=== PATIENT | male | born 1945 | race Asian ===

== ENCOUNTER 2018-09-17 11:26 | Inpatient (IN) | payer MEDICARE, OTHER ==
[2018-09-17] VITALS (26 sets, daily range): BP systolic 97–141; BP diastolic 57–90; PULSE 84–96; RESP 11–23; Ht 185.4 cm; Wt 103.8 kg
[~2018-09-17] VITALS: Ht 185.4 cm; Wt 103.8 kg
[~2018-09-17 11:26] MED LIST: ACETAMINOPHEN 500 MG TAB PO ONE; CEFAZOLIN 1 GM/50 ML (PMX) 50 ML IVPB ONE; DEXAMETHASONE 4 MG/ML 1 ML INJ IV ONE; KNEE PAIN COCKTAIL VANCO INJ SCH; LACTATED RINGER'S 1,000 ML IV* SCH; LANSOPRAZOLE 30 MG CAP PO ONE; ONDANSETRON 4 MG INJ IV ONE; TRANEXAMIC ACID 1GM/100ML(PMX) 100 ML INTRA-OP X1 IVPB ONE; TRANEXAMIC ACID 1GM/100ML(PMX) 100 ML PRE-OP X1 IVPB ONE; oxyCODONE (CR) 10 MG TAB [oxyCONTIN] PO ONE
[2018-09-17] MEDS ORDERED: PANT40TA3 PO (11:47)
[2018-09-17] MEDS ORDERED: ATOR20TA38 PO (11:47)
[2018-09-17] MEDS ORDERED: POLYMYXIN B 500000 UNIT INJ ONE (12:18)
[2018-09-17] MEDS ORDERED: BACITRACIN 50000 UNITS INJ ONE (12:21)
[2018-09-17] MEDS ORDERED: LACTATED RINGER'S 1,000 ML IV* SCH (12:30)
[2018-09-17] MEDS ORDERED: TRANEXAMIC ACID 1GM/100ML(PMX) 100 ML PRE-OP IVPB ONE (12:30)
[2018-09-17] MEDS ORDERED: CEFAZOLIN 2 GM/50 ML (PMX) 50 ML IVPB SCH (12:30)
[2018-09-17] MEDS ORDERED: DEXAMETHASONE 4 MG/ML 1 ML INJ IV ONE (12:30)
[2018-09-17] MEDS ORDERED: ACETAMINOPHEN 500 MG TAB PO ONE (12:30)
[2018-09-17] MEDS ORDERED: oxyCODONE (CR) 10 MG TAB [oxyCONTIN] PO ONE (12:30)
[2018-09-17] MEDS ORDERED: LANSOPRAZOLE 30 MG CAP PO ONE (12:30)
[2018-09-17] MEDS ORDERED: ONDANSETRON 4 MG INJ IV ONE (12:30)
[2018-09-17] MEDS ORDERED: TRANEXAMIC ACID 1GM/100ML(PMX) 100 ML AT CLOSING IVPB ONE (12:30)
[2018-09-17] MEDS ORDERED: KNEE PAIN COCKTAIL VANCO INJ SCH ×6 (12:30)
--- NOTE | 2018-09-17 12:30 | HPN ---
Date/Time of Note Date/Time of Note DATE: 09/17/18 TIME: 12:30 Interval H&P Admission Note Pt. seen H&P reviewed: No system changes ELISEO HANSEN MD Sep 17, 2018 12:30
--- NOTE | 2018-09-17 12:59 | PREAC ---
Date/Time of Note Date/Time of Note DATE: 09/17/18 TIME: 12:58 Anesthesia Eval and Record Evaluation Time Pre-Procedure Interview DATE: 09/17/18 TIME: 12:58 Age 72 Sex male NPO: 8 hrs Preoperative diagnosis R Knee OA Planned procedure R total knee replacement Past Medical History Past Medical History: Includes GI: GERD, Obesity Surgery & Anesthesia Issues No known issue Meds Anticoagulation: No Beta Zakia within 24 hr: No Reason Beta Zakia not given: Pt. not on B-Zakia Reported Medications Pantoprazole* (Protonix*) 40 Mg Tablet.dr, 40 MG PO DAILY, TAB 09/17/18 Atorvastatin Calcium* (Atorvastatin Calcium*) 20 Mg Tablet, 20 MG PO QHS, #30 TAB 09/17/18 Meds reviewed: Yes Allergies Coded Allergies: No Known Allergy (Unverified , 09/17/18) Allergies Reviewed: Yes Labs/Studies Labs Reviewed: Reviewed by anesthesiologist test: N/A Studies: ECG Pre-procedure Exam Airway: Adequate mouth opening, Adequate thyromental dist Mallampati: Mallampati II Teeth: Normal Lung: Normal Heart: Normal ASA Physical Status ASA physical status: 2 Emergency: None Planned Anesthetic General/MAC: ETT Neuraxial: Spinal Planned Pain Management Sub-arachniod narcotics Pre-operative Attestations Prior to commencing anesthesia and surgery, the patient was re-evaluated, there was verification of: *The patient's identity *The results of appropriate recent lab work and preoperative vital signs *The above evaluation not changing prior to induction *Anesthetic plan, risk benefits, alternative and complications discussed with patient/family; questions answered; patient/family understands, accepts and wishes to proceed. FABRICE SALOMON Sep 17, 2018 12:59
[2018-09-17] MEDS ORDERED: METOCLOPRAMIDE 10 MG INJ IV PRN (13:00)
[2018-09-17] MEDS ORDERED: DIPHENHYDRAMINE 50 MG INJ IV PRN (13:00)
[2018-09-17] MEDS ORDERED: TRANEXAMIC ACID 1 GM/100 ML (PMX) ONE (13:00)
[2018-09-17] MEDS ORDERED: HYDROmorphONE 1 MG/5 ML IV SYRINGE IV PRN (13:00)
[2018-09-17] MEDS ORDERED: ALBUTEROL 0.083% (NEB) 2.5 MG/3 ML AMP HHN PRN (13:00)
[2018-09-17] MEDS ORDERED: MEPERIDINE 25 MG INJ IV PRN (13:00)
[2018-09-17] MEDS ORDERED: FENTAnyl 50 MCG/ML VIAL IV PRN ×2 (13:00)
[2018-09-17] MEDS ORDERED: ONDANSETRON 4 MG INJ IV PRN (13:00)
[2018-09-17] MEDS ORDERED: morphine SULFATE/PF (10 MG/10 ML) INJ ONE (13:02)
[2018-09-17] MEDS ORDERED: MIDAZOLAM 1 MG/ML 2 ML INJ ONE (13:02)
[2018-09-17] MEDS ORDERED: CEFAZOLIN 1 GM INJ ONE (15:20)
[2018-09-17] MEDS ORDERED: LIDOCAINE 100 MG SYRINGE ONE (15:20)
[2018-09-17] MEDS ORDERED: SUCCINYLCHOLINE CHLORIDE 100 MG/5 ML SYG IV ONE (15:20)
[2018-09-17] MEDS ORDERED: SUGAMMADEX SODIUM 200 MG/2 ML VIAL IV ONE (15:20)
[2018-09-17] MEDS ORDERED: PROPOFOL 20 ML ONE (15:20)
[2018-09-17] MEDS ORDERED: ROCURONIUM 50 MG INJ ONE (15:20)
[2018-09-17] MEDS ORDERED: ROPIVACAINE 0.5 % 30 ML VIAL ONE (15:24)
--- NOTE | 2018-09-17 15:32 | SIPON ---
Date/Time of Note Date/Time of Note DATE: 09/17/18 TIME: 15:29 Operative Report Preoperative Diagnosis Right Knee Osteoarthritis Postoperative Diagnosis Same Operation/Procedure Performed Right Total Knee Arthroplasty Surgeon Joey Santoyo MD day care assistant Mukund Little Anesthesia: spinal Estimated blood loss: other Transfusion Required none Specimen bone Grafts/Implants none Complications none JOEY SANTOYO MD Sep 17, 2018 15:32
--- NOTE | 2018-09-17 15:38 | OPR ---
Date/Time of Note Date/Time of Note DATE: 09/17/18 TIME: 15:35 Operative Report Free Text/Dictation DATE OF OPERATION: September 17, 2018 SURGEON: Eliseo Hansen MD INCOME TAX ANALYST: Mukund Little PREOPERATIVE DIAGNOSIS: Right knee osteoarthritis. POSTOPERATIVE DIAGNOSIS: Right knee osteoarthritis. PROCEDURES PERFORMED: Right total knee arthroplasty, CPT code 94673. ANESTHESIOLOGIST: Dr. Leon ANESTHESIA: Spinal. ESTIMATED BLOOD LOSS: 300 mL. COMPLICATIONS: None. SPECIMENS: Resected bone. DISPOSITION: PACU in stable condition. TOURNIQUET TIME: 64 minutes at 250 mmHg. IMPLANT USED: [employer] size 8 Mansi tibial baseplate, size 8 posterior stabilized Oxinium femur, size 9 high flexion polyethylene, size 35 mm patella. INDICATION FOR PROCEDURE: This is an 72-year-old male with end-stage osteoarthritis of the right knee who had failed nonoperative management. Risks, benefits, alternatives of surgical intervention were discussed with the patient and informed consent was obtained. The risks of surgery include but are not limited to infection, deep venous thrombosis, pulmonary embolism, damage to nerves and blood vessels, numbness around incision site, stiffness of knee, need for total knee manipulation under anesthesia, need for blood transfuion, heart attack, stroke, risks associated with anesthesia, implant loosening, wear of prosthesis, need for revision surgery, and . DESCRIPTION OF PROCEDURE: The patient was met in the preoperative suite. The correct operative site was confirmed and marked. The patient was then brought into operating room. After induction of anesthesia, the patient was placed in the supine position on the operating room table. A tourniquet was applied to right upper thigh. The right lower extremity was prepped and draped in the usua l sterile fashion. Before starting, a timeout was taken to identify the correct operative site and confirm preoperative antibiotics consisting of 1 g of IV Ancef, along with 1 g of tranexamic acid were administered. At this point, the right leg was elevated and exsanguinated with an Esmarch and tourniquet was then insufflated for the above noted time. A midline incision was made and median parapatellar arthrotomy was then completed. The lateral patellar retinacular ligaments were released. A sleeve of tissue was released from the medial proximal tibia. The cruciate ligaments and the menisci were then excised. At this point, the custom distal femur cutting block was then pinned and 9.5 mm was resected from the distal femur. The 4-in-1 cutting block, size 8 was then placed. An selvin wing was used to confirm that notching of the anterior cortex of the femur would not occur. The anterior and posterior condylar cuts were completed followed by the anterior and posterior chamfer cuts. The osteophytes were then removed with a rongeur. At this point, the tibia was subluxed anteriorly. Appropriate retractors were placed. The custom tibial cutting block was then pinned. The drop was used to ensure the correct alignment. Approximately 6.5 mm was resected off the lateral tibial plateau and 11 mm off the medial tibial plateau. Osteophytes were then removed. At this point, the flexion extension gaps were checked with a 9 mm gap job checker and noted to be equal. Next, trial 8 femur was then pinned and the box cut was then completed. The tibia was then subluxed anteriorly and measured to size 8. The tibial tray was then pinned and a keel was then punched. The trial components were placed with a 9 mm polyethylene and noted to have full extension and greater than 120 degrees of flexion. The patella was then subluxed laterally and sized to 24 mm. Approximately, 10 mm was resected. The patellar was sized to 35 mm. The button was placed and noted to have excellent patellar tracking. The trial components were removed. All bony surfaces were pulse lavaged and dried. The appropriate size components were then cemented and the knee was held in extension with a 9 mm trial polyethylene until the cement cured. Once the cement had cured, the trial polyethylene was removed and the appropriate size polyethylene was then placed. The tranexamic acid was redosed. The cocktail was then injected. The extensor mechanism was closed using #1 Stratafix and the subcutaneous tissue with 2-0 Vicryl and the skin with 4-0 Monocryl. Steri-Strips were applied along with a sterile dressing. There were no complications. The patient was transferred to PACU in stable condition. POSTOPERATIVE CARE: The patient will be weightbearing as tolerated. The patient will work with physical therapy, and will receive two additional doses of IV antibiotics along with aspirin 81 mg p.o. b.i.d. for 6 weeks. Upon discharge, patient will follow up in my office within 2 weeks postoperatively. ELISEO HANSEN MD Sep 17, 2018 15:38
[2018-09-17] MEDS ORDERED: DOCUSATE SODIUM 100 MG CAP PO ONE ×2 (16:00→16:33)
[2018-09-17] MEDS ORDERED: NACL 0.9% 3 ML SYG IV SCH (16:00)
[2018-09-17] MEDS ORDERED: NALOXONE (0.4 MG/ML) INJ IV PRN (16:00)
[2018-09-17] MEDS: CEFAZOLIN 2 GM/50 ML (PMX) 50 ML IVPB SCH (16:57)
[2018-09-17] MEDS: ONDANSETRON 4 MG INJ IV SCH ×2 (16:57→21:14)
--- NOTE | 2018-09-17 16:58 | PAC ---
Date/Time of Note Date/Time of Note DATE: 09/17/18 TIME: 16:58 Post-Anesthesia Notes Post-Anesthesia Note Last documented vital signs Vital Signs Date Temp Pulse Resp B/P (MAP) Pulse Ox O2 O2 Flow FiO2 Time Delivery Rate 09/17/18 90 15 114/79 96 16:53 (91) 09/17/18 Nasal 2.0 16:39 Cannula 09/17/18 98.1 15:48 Activity: WNL Respiratory function: WNL Cardiovascular function: WNL Mental status: Baseline Pain reasonably controlled: Yes Hydration appropriate: Yes Nausea/Vomiting absent: Yes FABRICE SALOMON Sep 17, 2018 16:58
[2018-09-17] MEDS: GABAPENTIN 100 MG CAP PO SCH (21:14)
[2018-09-18] MEDS: CEFAZOLIN 2 GM/50 ML (PMX) 50 ML IVPB SCH ×2 (01:04→09:14)
[2018-09-18 02:23] VITALS: BP 104/65; PULSE 88; RESP 19
[2018-09-18] MEDS: ONDANSETRON 4 MG INJ IV SCH ×2 (03:41→09:14)
[2018-09-18 08:20] VITALS: BP 105/60; PULSE 83; RESP 18
[2018-09-18] MEDS: CELECOXIB 100 MG CAP PO SCH ×2 (09:14→20:29)
[2018-09-18] MEDS: GABAPENTIN 100 MG CAP PO SCH ×3 (09:14→20:29)
[2018-09-18] MEDS: ASPIRIN (EC) 81 MG TAB PO SCH ×2 (09:14→20:29)
--- NOTE | 2018-09-18 10:54 | CONS ---
Assessment/Plan Assessment/Plan Hospital Course (Demo Recall) SUBJECTIVE: Lying in bed comfortably but in no acute distress. OBJECTIVE: Vital signs-see below PHYSICAL EXAM: Constitutional: Adequately built,not in acute distress. HEENT: Head atraumatic and normocephalic. Eyes: Extraocular muscles intact. Anicteric sclerae. Pupils equal bilaterally, reactive to light. NECK: Supple without lymph node. CHEST: Clear and good breath sounds equally. No wheezing. No rhonchi. HEART: S1, S2. Regular rate and rhythm. ABDOMEN: Soft/non tender with no rebound tenderness. Bowel sounds were present. EXTREMITIES: Right lower extremity covered with ACEI wrap, dressing C/D/I. no cyanosis, clubbing or edema. NEUROLOGIC: Alert and oriented x3. No focal deficit. No sensory deficit. PSYCHOSOCIAL: No signs of depression. INTEGUMENTARY: No open wounds. ASSESSMENT AND PLAN: 72-year-old male with a history of hypercholesterolemia, right knee osteoarthritis, admitted after right total knee arthroplasty. 1. Right knee osteoarthritis, status post right total knee arthroplasty 09/17/2018. -DVT ppx, pain control, physical therapy 2. Hypercholesterolemia -Resume statin 3.Obesity with BMI 30.2 -Weight reduction advised. Obtain emergency lipid panel with a.m. labs. DVT prophylaxis: Per orthopedic team, patient is getting aspirin. Apply SCDs Disposition: Per orthopedics. Approximately 60 m spent on this consultation. Patient was seen in collaboration with Consultation Date/Type/Reason Admit Date/Time Sep 17, 2018 at 15:49 Type of Consult Hospitalist medicine Reason for Consultation Postoperative: Medical management Requesting Provider: ELISEO HANSEN MD Date/Time of Note DATE: 09/18/18 TIME: 10:51 Hx of Present Illness This is a 72-year-old male with a history of hypercholesterolemia, admitted for right total knee arthroplasty secondary to right knee osteoarthritis. Hospitalist consultation was requested for postoperative medical management. Patient denied chest pain, palpitation, shortness of breath, nausea, vomiting, dizziness, headache, numbness, tingling, fever, chills or other constitutional symptoms. Labs stable. Vital signs stable. A 12 point review of system was assessed and is negative other than what is mentioned in HPI. Past Medical History Home Meds Reported Medications Pantoprazole* (Protonix*) 40 Mg Tablet., 40 MG PO DAILY, TAB 09/17/18 Atorvastatin Calcium* (Atorvastatin Calcium*) 20 Mg Tablet, 20 MG PO QHS, #30 TAB 09/17/18 Medications Current Medications IV Flush (NS 3 ml) 3 ml PER PROTOCOL IV ; Start 09/17/18 at 16:00 Oxycodone HCl (Roxicodone) 10 mg Q4H PRN PO .PAIN; Start 09/17/18 at 16:00 Ketorolac Tromethamine (Toradol) 15 mg Q6H PRN IV .PAIN; Start 09/17/18 at 16:00 Celecoxib (Celebrex) 100 mg BID PO Last administered on 09/18/18at 09:14; Admin Dose 100 MG; Start 09/18/18 at 09:00 Gabapentin (Neurontin) 100 mg TID PO Last administered on 09/18/18at 09:14; Admin Dose 100 MG; Start 09/17/18 at 21:00 Pantoprazole (Protonix Tab) 40 mg DAILY@06 PO ; Start 09/19/18 at 06:00 Naloxone HCl (Narcan) 0.2 mg Q2M PRN IV .RESP RATE; Start 09/17/18 at 16:00 Aspirin (Halfprin) 81 mg BID PO Last administered on 09/18/18at 09:14; Admin Dose 81 MG; Start 09/18/18 at 09:00 Acetaminophen/ Hydrocodone Bitart ([place] (5/325)) 2 tab Q6H PRN PO MODERATE PA IN LEVEL 4-6; Start 09/17/18 at 16:00 Allergies: Coded Allergies: No Known Allergy (Unverified , 09/17/18) Social History Smoking Status: Never smoker Exam/Review of Systems Exam Vitals Vital Signs Date Temp Pulse Resp B/P (MAP) Pulse Ox O2 O2 Flow FiO2 Time Delivery Rate 09/18/18 98.0 83 18 105/60 94 Nasal 2.0 08:20 (75) Cannula Intake and Output 09/17/18 09/17/18 09/18/18 1515:00 23:00 07:00 IntakeIntake Total 2450 ml 250 ml OutputOutput Total 50 ml 1200 ml BalanceBalance 2400 ml -950 ml Results Result Diagram: 09/18/18 0451 09/18/18 0451 Results 24hrs Laboratory Tests Test 09/18/18 04:51 09/18/18 07:28 White Blood Count 9.9 Red Blood Count 4.62 L Hemoglobin 13.1 L Hematocrit 39.7 L Mean Corpuscular Volume 85.9 Mean Corpuscular Hemoglobin 28.4 L Mean Corpuscular Hemoglobin Concent 33.0 Red Cell Distribution Width 13.0 Platelet Count 184 Mean Platelet Volume 9.0 # Immature Granulocytes % 0.300 Neutrophils % 80.4 H Lymphocytes % 9.2 L Monocytes % 10.0 Eosinophils % 0.0 Basophils % 0.1 Nucleated Red Blood Cells % 0.0 Immature Granulocytes # 0.030 Neutrophils # 7.9 H Lymphocytes # 0.9 Monocytes # 1.0 H Eosinophils # 0.0 Basophils # 0.0 Nucleated Red Blood Cells # 0.0 Sodium Level 141 Potassium Level 4.8 Chloride Level 108 Carbon Dioxide Level 27 Anion Gap 6 Blood Urea Nitrogen 19 Creatinine 0.81 Est Glomerular Filtrat Rate mL/min Glucose Level 150 Calcium Level 8.5 Lab Scanned Report REFERENCE LAB Medications Medication Current Medications IV Flush (NS 3 ml) 3 ml PER PROTOCOL IV ; Start 09/17/18 at 16:00 Oxycodone HCl (Roxicodone) 10 mg Q4H PRN PO .PAIN; Start 09/17/18 at 16:00 Ketorolac Tromethamine (Toradol) 15 mg Q6H PRN IV .PAIN; Start 09/17/18 at 16:00 Celecoxib (Celebrex) 100 mg BID PO Last administered on 09/18/18at 09:14; Admin Dose 100 MG; Start 09/18/18 at 09:00 Gabapentin (Neurontin) 100 mg TID PO Last administered on 09/18/18at 09:14; Admin Dose 100 MG; Start 09/17/18 at 21:00 Pantoprazole (Protonix Tab) 40 mg DAILY@06 PO ; Start 09/19/18 at 06:00 Naloxone HCl (Narcan) 0.2 mg Q2M PRN IV .RESP RATE; Start 09/17/18 at 16:00 Aspirin (Halfprin) 81 mg BID PO Last administered on 09/18/18at 09:14; Admin Dos e 81 MG; Start 09/18/18 at 09:00 Acetaminophen/ Hydrocodone Bitart ([place] (5/325)) 2 tab Q6H PRN PO MODERATE PAIN LEVEL 4-6; Start 09/17/18 at 16:00 NEYMAR JOSÉ NP Sep 18, 2018 10:54
[2018-09-18] MEDS: KETOROLAC 15 MG INJ IV PRN (14:44)
[2018-09-18 14:55] VITALS: BP 110/74; PULSE 84; RESP 18
[2018-09-18] MEDS: HYDROCODONE/APAP (5/325) TAB PO PRN ×2 (17:31→23:20)
[2018-09-18 20:07] VITALS: BP 107/54; PULSE 82; RESP 18
[2018-09-18] MEDS: ATORVASTATIN 20 MG TAB PO SCH (20:29)
[2018-09-19 02:20] VITALS: BP 96/55; PULSE 85; RESP 16
[2018-09-19] MEDS: oxyCODONE 5 MG TAB PO PRN ×3 (04:11→19:00)
[2018-09-19] MEDS: PANTOPRAZOLE (EC) 40 MG TAB PO SCH (05:48)
[2018-09-19 08:13] VITALS: BP 109/56; PULSE 72; RESP 18
[2018-09-19] MEDS: ASPIRIN (EC) 81 MG TAB PO SCH ×2 (09:02→20:08)
[2018-09-19] MEDS: CELECOXIB 100 MG CAP PO SCH ×2 (09:02→20:08)
[2018-09-19] MEDS: GABAPENTIN 100 MG CAP PO SCH ×3 (09:03→20:08)
[2018-09-19] MEDS: HYDROCODONE/APAP (5/325) TAB PO PRN ×3 (10:54→21:04)
[2018-09-19 14:27] VITALS: BP 112/62; PULSE 78; RESP 18
--- NOTE | 2018-09-19 15:22 | PN ---
Date/Time of Note Date/Time of Note DATE: 09/19/18 TIME: 15:11 Assessment/Plan VTE [place] [facility] [place]: 3 [place] [facility] [place] Yes Pharmacological prophylaxis: other Pharm contraindication: other Lines/Catheters IV [facility] Type ([facility] Peripheral IV Urinary Cath still in place: No Assessment/Plan Assessment/Plan 1. Right knee osteoarthritis, status post right total knee arthroplasty on 09/17/2018, stable, continue PT 2. Hypercholesterolemia, on lipitor 3. Obesity with BMI 30.2, Weight reduction advised 4. DVT prophylaxis, aspirin. Apply SCDs Result Diagram: 09/19/1843609/19/18436 Results 24hrs Laboratory Tests Test 09/19/18 04:37 White Blood Count 7.7 # Red Blood Count 3.86 L Hemoglobin 11.2 L Hematocrit 33.6 L Mean Corpuscular Volume 87.0 Mean Corpuscular Hemoglobin 29.0 Mean Corpuscular Hemoglobin Concent 33.3 Red Cell Distribution Width 13.2 Platelet Count 165 Mean Platelet Volume 9.1 Immature Granulocytes % 0.300 Neutrophils % 63.4 Lymphocytes % 18.0 Monocytes % 14.9 H Eosinophils % 2.9 Basophils % 0.5 Nucleated Red Blood Cells % 0.0 Immature Granulocytes # 0.020 Neutrophils # 4.9 Lymphocytes # 1.4 Monocytes # 1.2 H Eosinophils # 0.2 Basophils # 0.0 Nucleated Red Blood Cells # 0.0 Sodium Level 140 Potassium Level 4.3 Chloride Level 107 Carbon Dioxide Level 27 Anion Gap 6 Blood Urea Nitrogen 23 H Creatinine 0.81 Est Glomerular Filtrat Rate mL/min Glucose Level 112 Calcium Level 8.3 L Subjective 24 Hr Interval Summary Free Text/Dictation right knee pain Exam/Review of Systems Exam Vitals Vital Signs Date Temp Pulse Resp B/P (MAP) Pulse Ox O2 O2 Flow FiO2 Time Delivery Rate 09/19/18 98.0 78 18 112/62 94 Nasal 2.0 14:27 (79) Cannula Intake and Output 09/18/18 09/18/18 09/19/18 1515:00 23:00 07:00 IntakeIntake Total 890 ml 200 ml 120 ml OutputOutput Total 500 ml 350 ml BalanceBalance 390 ml 200 ml -230 ml Constitutional: alert, oriented, well developed Psych: no complaints, nl mood/affect Head: normocephalic, atraumatic Eyes: nl conjunctiva, EOMI, nl lids ENMT: nl external ears & nose, nl lips & teeth, nl nasal mucosa & septum Neck: supple, non-tender Respiratory: clear to auscultation, normal air movement; No congested cough, No crackles/rales, No diminished breath sounds, No intercostal retraction, No labored breathing, No respirations, No tactile fremitus, No wheezing, No other Cardiovascular: regular rate and rhythm, nl pulses; No bruits, No diastolic murmur, No edema, No gallop, No irregular rhythm, No jugular venous distention (JVD), No murmurs/extra sounds, No rub, No systolic murmur, No S3, No S4, No other Gastrointestinal: soft, nl liver, spleen, non-tender Extremities: other (right knee pain) 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: 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, nl mental status, nl speech, nl strength Results Results 24hrs Laboratory Tests Test 09/19/18 04:37 White Blood Count 7.7 # Red Blood Count 3.86 L Hemoglobin 11.2 L Hematocrit 33.6 L Mean Corpuscular Volume 87.0 Mean Corpuscular Hemoglobin 29.0 Mean Corpuscular Hemoglobin Concent 33.3 Red Cell Distribution Width 13.2 Platelet Count 165 Mean Platelet Volume 9.1 Immature Granulocytes % 0.300 Neutrophils % 63.4 Lymphocytes % 18.0 Monocytes % 14.9 H Eosinophils % 2.9 Basophils % 0.5 Nucleated Red Blood Cells % 0.0 Immature Granulocytes # 0.020 Neutrophils # 4.9 Lymphocytes # 1.4 Monocytes # 1.2 H Eosinophils # 0.2 Basophils # 0.0 Nucleated Red Blood Cells # 0.0 Sodium Level 140 Potassium Level 4.3 Chloride Level 107 Carbon Dioxide Level 27 Anion Gap 6 Blood Urea Nitrogen 23 H Creatinine 0.81 Est Glomerular Filtrat Rate mL/min Glucose Level 112 Calcium Level 8.3 L Medications Medication Current Medications IV Flush (NS 3 ml) 3 ml PER PROTOCOL IV ; Start 09/17/18 at 16:00 Oxycodone HCl (Roxicodone) 10 mg Q4H PRN PO .PAIN Last administered on 09/19/18at 12:51; Admin Dose 10 MG; Start 09/17/18 at 16:00 Ketorolac Tromethamine (Toradol) 15 mg Q6H PRN IV .PAIN Last administered on 09/18/18 14:44; Admin Dose 15 MG; Start 09/17/18 at 16:00 Celecoxib (Celebrex) 100 mg BID PO Last administered on 09/19/18 09:02; Admin Dose 100 MG; Start 09/18/18 at 09:00 Gabapentin (Neurontin) 100 mg TID PO Last administered on 09/19/18at 12:51; Admin Dose 100 MG; Start 09/17/18 at 21:00 Pantoprazole (Protonix Tab) 40 mg DAILY@06 PO Last administered on 09/19/18 05:48; Admin Dose 40 MG; Start 09/19/18 at 06:00 Naloxone HCl (Narcan) 0.2 mg Q2M PRN IV .RESP RATE; Start 09/17/18 at 16:00 Aspirin (Halfprin) 81 mg BID PO Last administered on 09/19/18 09:02; Admin Dose 81 MG; Start 09/18/18 at 09:00 Acetaminophen/ Hydrocodone Bitart ([place] (5/325)) 2 tab Q6H PRN PO MODERATE PAIN LEVEL 4-6 Last administered on 09/19/18at 10:54; Admin Dose 2 TAB; Start 09/17/18 at 16:00 Atorvastatin Calcium (Lipitor) 20 mg QHS PO Last administered on 09/18/18at 20:29; Admin Dose 20 MG; Start 09/18/18 at 21:00 Metoprolol Tartrate (Lopressor) 25 mg BID PO ; Start 09/19/18 at 21:00 BRITTNEE BENAVIDEZ MD Sep 19, 2018 15:21
[2018-09-19 19:40] VITALS: BP 110/65; PULSE 84; RESP 18
[2018-09-19] MEDS: ATORVASTATIN 20 MG TAB PO SCH (20:08)
[2018-09-19] MEDS: METOPROLOL 25 MG TAB PO SCH (20:09)
[2018-09-20 02:20] VITALS: BP 110/55; PULSE 72; RESP 18
[2018-09-20] MEDS: PANTOPRAZOLE (EC) 40 MG TAB PO SCH (06:22)
[2018-09-20] MEDS: HYDROCODONE/APAP (5/325) TAB PO PRN (06:23)
[2018-09-20 07:15] VITALS: BP 101/59; PULSE 75; RESP 19
[2018-09-20] MEDS: GABAPENTIN 100 MG CAP PO SCH ×2 (09:12→12:55)
[2018-09-20] MEDS: ASPIRIN (EC) 81 MG TAB PO SCH (09:12)
[2018-09-20] MEDS: CELECOXIB 100 MG CAP PO SCH (09:13)
[2018-09-20] MEDS: METOPROLOL 25 MG TAB PO SCH (09:17)
[2018-09-20] MEDS: KETOROLAC 15 MG INJ IV PRN (09:17)
[2018-09-20 09:23] VITALS: BP 148/61; PULSE 98
[2018-09-20 13:54] VITALS: BP 119/58; PULSE 70; RESP 20
--- NOTE | 2018-09-20 15:33 | PDOCDIS ---
Discharge Instructions CONDITION [id number] Patient Condition: [id number] Stable HOME CARE INSTRUCTIONS: [id number] Diet Instructions: [id number] Regular ACTIVITY: [id number] Activity Restrictions: [id number] Slowly Increase Activity Rest between Activity Avoid heavy lifting Do not Drive [id number] Bathing Restrictions: [id number] Shower FOLLOW UP/APPOINTMENTS Follow-up Plan appt pcp & Ortho 1-2wks JANELLE LOGAN MD Sep 20, 2018 15:33
[2018-09-20] MEDS ORDERED: CELE100C PO (15:35)
[2018-09-20] MEDS ORDERED: ASPI-1044 PO (15:35)
[2018-09-20] MEDS ORDERED: METO-448 PO (15:35)
[2018-09-20] MEDS ORDERED: GABA100C14 PO (15:35)
--- NOTE | 2018-09-20 16:59 | DS ---
Date/Time of Note Date/Time of Note DATE: 09/20/18 TIME: 16:56 Discharge Summary Admission/Discharge Info Admit Date/Time Sep 17, 2018 at 15:49 Discharge Date/Time Patient Condition: Stable Consults Dr Inge Gordon Procedures Total knee arthroplasty Hx of Present Illness Hospitalist Coverage/hospital course Admitted and underwent surgery for DJD. Underwent elective total knee arthroplasty. Stable and fit for discharge home. With home health DME. on ASA bid for dvt prophylaxis. Weightbearing as tolerated Total knee arthroplasty DJD Dyslipidemia Anemia Hospital Course See above Home Meds Active Scripts Gabapentin* (Gabapentin*) 100 Mg Capsule, 100 MG PO TID for 10 Days, #30 CAP Prov:JANELLE LOGAN MD 09/20/18 Celecoxib* (Celebrex*) 100 Mg Capsule, 100 MG PO BID for 5 Days, #10 CAP Prov:JANELLE LOGAN MD 09/20/18 Aspirin Delayed Release (Aspirin Delayed Release) 81 Mg Tablet., 81 MG PO BID for 45 Days, #30 2 Refills Prov:JANELLE LOGAN MD 09/20/18 Metoprolol Tartrate* (Lopressor*) 25 Mg Tab, 12.5 MG PO BID for 10 Days, #20 TAB Prov:JANELLE LOGAN MD 09/20/18 Reported Medications Pantoprazole* (Protonix*) 40 Mg Tablet., 40 MG PO DAILY, TAB 09/17/18 Atorvastatin Calcium* (Atorvastatin Calcium*) 20 Mg Tablet, 20 MG PO QHS, #30 TAB 09/17/18 Follow-up Plan appt pcp & Ortho 1-2wks Primary Care Provider Not On Staff Doctor Time spent on discharge: < 30 minutes Pending Labs Laboratory Tests Test 09/20/18 04:44 White Blood Count 7.7 10^3/ul (4.8-10.8) Red Blood Count 3.85 10^6/ul (4.70-6.10) Hemoglobin 11.2 g/dl (14.0-18.0) Hematocrit 34.0 % (42.0-52.0) Mean Corpuscular Volume 88.3 fl (82.0-101.0) Mean Corpuscular Hemoglobin 29.1 pg (29.0-33.0) Mean Corpuscular Hemoglobin Concent 32.9 g/dl (32.0-37.0) Red Cell Distribution Width 13.1 % (11.5-14.5) Platelet Count 166 10^3/UL (140-415) Mean Platelet Volume 9.1 fl (7.4-10.4) Immature Granulocytes % 0.400 % (0.001-0.429) Neutrophils % 58.2 % (39.0-77.0) Lymphocytes % 21.2 % (15.0-51.0) Monocytes % 12.4 % (0.0-11.0) Eosinophils % 7.4 % (0.0-7.0) Basophils % 0.4 % (0.0-2.0) Nucleated Red Blood Cells % 0.0 /100WBC (0.0-0.0) Immature Granulocytes # 0.030 10^3/ul (0.0-0.031) Neutrophils # 4.5 10^3/ul (1.6-7.5) Lymphocytes # 1.6 10^3/ul (0.8-2.9) Monocytes # 1.0 10^3/ul (0.3-0.9) Eosinophils # 0.6 10^3/ul (0.0-0.5) Basophils # 0.0 10^3/ul (0.0-0.1) Nucleated Red Blood Cells # 0.0 10^3/ul (0.0-0.0) Sodium Level 140 mmol/L (135-144) Potassium Level 4.3 mmol/L (3.5-5.1) Chloride Level 105 mmol/L (97-110) Carbon Dioxide Level 30 mmol/L (21-31) Anion Gap 5 (5-13) Blood Urea Nitrogen 18 mg/dl (7-20) Creatinine 0.80 mg/dl (0.61-1.24) Est Glomerular Filtrat Rate mL/min mL/min (>60) Glucose Level 115 mg/dl (70-220) Calcium Level 8.3 mg/dl (8.4-10.2) JANELLE LOGAN MD Sep 20, 2018 16:59
--- NOTE | 2018-09-24 10:00 | DS ---
DATE OF ADMISSION: 09/17/2018 DATE OF DISCHARGE: 09/20/2018 HOSPITAL COURSE: Mr. Palumbo underwent a right total knee arthroplasty on 09/17/2018. There were n o complications during the surgery. He was subsequently admitted to the medical floor. He progresse d with physical therapy and was discharged home in stable condition on 09/20/18. There were no compl ications during the hospital stay. He is to follow up postoperatively within 10 to 14 days. He was given a prescription for aspirin twice daily for deep vein thrombosis prophylaxis. Dictated By: ELISEO HANSEN MD SS/NTS Conf#: [id number] DID#: [id number] CC: KRYSTIAN GILL MD; ELISEO HANSEN MD;*EndCC*
== END 2018-09-20 17:30 | disposition home health service (06) | DRG 470 ==
LOC: SDS 11:26 → REC 15:49 → MS1 17:55
PROVIDERS: ADMIT Orthopaedic Surgery Adult Reconstructive Orthopaedic Surgery; ATTEND Orthopaedic Surgery Adult Reconstructive Orthopaedic Surgery
PROC: 0SRC069 Replacement of Right Knee Joint with Oxidized Zirconium on Polyethylene Synthetic Substitute, Cemented, Open Approach (ICD-10-PCS; principal; 2018-09-17 13:30)
DX: M17.11 Unilateral primary osteoarthritis, right knee (principal); E78.00 Pure hypercholesterolemia, unspecified; Z68.30 Body mass index [BMI] 30.0-30.9, adult
CPT/HCPCS: 73560; 80048; 80061; 83036; 85025; 88304; 88311; 97110; 97116; 97161; 97530; C1713; C1776; J0690; J0735; J1100; J1885; J2001; J2250; J2274; J2405; J2795; J3370; J7120